=== PATIENT | male | born 1955 | race Caucasian/White ===

== ENCOUNTER → 2023-12-15 09:37 | Outpatient (REF) | payer MEDICARE, SELFPAY | LOC: RAD 09:37 | PROVIDERS: ATTENDING PHYSICIAN Internal Medicine Gastroenterology; FAMILY PHYSICIAN Family Medicine | DX: R10.9 Unspecified abdominal pain (principal) | CPT/HCPCS: 74018 ==

== ENCOUNTER → 2024-07-05 08:04 | Outpatient (REF) | payer MEDICARE, SELFPAY | LOC: RAD 08:04 | PROVIDERS: ATTENDING PHYSICIAN Family Medicine | DX: M47.812 Spondylosis without myelopathy or radiculopathy, cervical region (principal) | CPT/HCPCS: 72052 ==

== ENCOUNTER → 2024-09-09 07:02 | Outpatient (REF) | payer MEDICARE, SELFPAY | LOC: MRI 07:02 | PROVIDERS: ATTENDING PHYSICIAN Psychiatry & Neurology Neurology; FAMILY PHYSICIAN Family Medicine | DX: M54.2 Cervicalgia (principal); M54.12 Radiculopathy, cervical region | CPT/HCPCS: 72141 ==

== ENCOUNTER → 2024-10-15 07:54 | Outpatient (REF) | payer MEDICARE, SELFPAY | LOC: HWRAD 07:54 | PROVIDERS: ATTENDING PHYSICIAN Psychiatry & Neurology Neurology; FAMILY PHYSICIAN Family Medicine | DX: M47.812 Spondylosis without myelopathy or radiculopathy, cervical region (principal); M54.2 Cervicalgia | CPT/HCPCS: 72125 ==